=== PATIENT | female | born 1990 ===

== ENCOUNTER 2021-01-29 12:57 | Emergency (ER) | payer MEDICAID ==
[2021-01-29 14:41] VITALS: BP 146/81
[2021-01-29 15:10] LABS: Basophils # (Auto) 0.1 K/mm3 (0.0-0.1); Basophils % (Auto) 0.7 % (0.0-1.8); Eosinophils % (Auto) 0.5 % (0.0-4.3); Hemoglobin 13.7 gm/dl (10.1-14.3); Lymphocytes # (Auto) 1.3 K/mm3 (1.2-5.4); Mean Corpuscular HGB Conc 34 % (30-34); Mean Corpuscular Volume 86 fl (79-97); Monocytes # (Auto) 0.4 K/mm3 (0.0-0.8); Monocytes % (Auto) 4.8 % (0.0-7.3); Platelet Count 267 K/mm3 (140-440); Red Blood Count 4.77 M/mm3 (3.65-5.03); Red Cell Distribution Width 14.2 % (13.2-15.2)
[2021-01-29 15:29] LABS: Alanine Aminotransferase 8 units/L (7-56); Albumin 4.4 g/dL (3.9-5); BUN/Creatinine Ratio 13; Blood Urea Nitrogen 12 mg/dL (7-17); Calcium 8.8 mg/dL (8.4-10.2); Hemolysis Index 3
--- NOTE | 2021-01-29 16:59 | Emergency Department Report ---
ED General Adult HPI - General Chief complaint: Weakness Stated complaint: SOB/LIGHT HEADED Source: patient Mode of arrival: Ambulatory Limitations: No Limitations - History of Present Illness Initial comments: 30-year-old female states that on night she had pain to her legs bilaterally she took an oxycodone tablet for the pain. On Sunday morning morning she vomited 2-3 times. Since then she has been feeling weak fatigued. Today she has had no episode of vomiting but still complains of just generally not feeling well and feeling fatigued. She denies chest pain she denies shortness of breath she has no fever chills no nausea , she denies urinary frequency or urgency. She reports a past medical history of sickle cell trait only no other chronic medical conditions Associated Symptoms: malaise, weakness. denies: confusion, chest pain, cough, diaphoresis, fever/chills, headaches, shortness of breath Treatments Prior to Arrival: none - Related Data Previous Rx's Medication Instructions Recorded Last Taken Type Ibuprofen [Motrin 600 MG tab] 600 mg PO Q8H PRN #30 tablet 05/08/16 Unknown Rx Allergies Allergy/AdvReac Type Severity Reaction Status Date / Time No Known Allergies Allergy Verified 01/29/21 14:41 ED Review of Systems ROS: Stated complaint: SOB/LIGHT HEADED Other details as noted in HPI Comment: All other systems reviewed and negative Constitutional: no symptoms reported. denies: chills, fever, weakness ENT: denies: ear pain, throat pain, dental pain, hearing loss, epistaxis, congestion Respiratory: denies: cough Cardiovascular: denies: chest pain, palpitations, dyspnea on exertion, edema, syncope, paroxysmal nocturnal dyspnea Endocrine: no symptoms reported Gastrointestinal: nausea (2 episodes on Sunday associated with nausea nausea), vomiting. denies: abdominal pain Genitourinary: denies: dysuria Musculoskeletal: denies: back pain Skin: denies: rash, change in color Psychiatric: denies: anxiety, auditory hallucinations Hematological/Lymphatic: denies: easy bleeding ED Past Medical Hx - Past Medical History Hx Hypertension: No Hx Congestive Heart Failure: No Hx Diabetes: No Hx Deep Vein Thrombosis: No Hx Renal Disease: No Hx Sickle Cell Disease: No Hx Seizures: No Hx Asthma: No Hx COPD: No Hx HIV: No - Social History Smoking Status: Never Smoker - Medications Home Medications: Home Medications Medication Instructions Recorded Confirmed Last Taken Type Ibuprofen [Motrin 600 MG tab] 600 mg PO Q8H PRN #30 tablet 05/08/16 Unknown Rx ED Physical Exam - General Limitations: No Limitations General appearance: alert, in no apparent distress - Head Head exam: Present: atraumatic - Eye Eye exam: Present: normal appearance - ENT ENT exam: Present: normal exam, mucous membranes moist, TM's normal bilaterally - Neck Neck exam: Present: normal inspection - Respiratory Respiratory exam: Present: normal lung sounds bilaterally - Cardiovascular Cardiovascular Exam: Present: regular rate, normal heart sounds - GI/Abdominal GI/Abdominal exam: Present: soft. Absent: distended, tenderness - Extremities Exam Extremities exam: Present: normal inspection - Back Exam Back exam: Present: normal inspection - Neurological Exam Neurological exam: Present: alert, oriented X3 - Psychiatric Psychiatric exam: Present: normal affect - Skin Skin exam: Present: warm, dry, intact, normal color ED Course Vital Signs 01/29/21 14:41 Temperature 98.7 F Pulse Rate 78 Respiratory 18 Rate Blood Pressure 146/81 [Left] O2 Sat by Pulse 100 Oximetry - Reevaluation(s) Reevaluation #1: 01/29/21 17:03 Well-appearing in no acute distress labs results are back and with no acute abnormalities awaiting urinalysis results ED Medical Decision Making - Lab Data Result diagrams: 01/29/21 14:56 01/29/21 14:56 - EKG Data EKG shows normal: sinus rhythm Rate: normal (73) - Medical Decision Making 30-year-old female past medical history of sickle cell trait no sickle cell disease patient states that her bilateral legs were hurting on night she took an oxycodone. On Sunday morning she had 2-3 episodes of vomiting no nausea she has not been feeling well since just feeling fatigued but no additional vomiting feeling tired lab results reviewed with patient her CBC and chemistry with no acute findings urine negative for urinary tract infection I discussed all findings with the patient she is in no acute distress she plans to follow-up with her primary care doctor. Advise rest hydration and follow-up as needed - Differential Diagnosis Viral illness reaction to medication Critical Care Time: No Critical care attestation.: If time is entered above; I have spent that time in minutes in the direct care of this critically ill patient, excluding procedure time. ED Disposition Clinical Impression: Viral illness Drug reaction Qualifiers: Encounter type: initial encounter Qualified Code(s): T50.905A - Adverse effect of unspecified drugs, medicaments and biological substances, initial encounter Disposition: TO HOME OR SELFCARE Is pt being admited?: No Does the pt Need Aspirin: No Condition: Stable Instructions: Viral Illness, Adult Additional Instructions: You may have had a reaction to the oxycodone that you took on this is unclear. This could also possibly be a viral illness. I suggest for the next 24 to 48 hours you keep yourself well-hydrated have a bland diet rest call your primary care doctor and follow-up with him or her in 3 to 5 days return to the emergency room for any worsening symptoms Referrals: PRIMARY CARE, [Primary Care Provider] - 3-5 Days Time of Disposition: 17:23
[2021-01-29 17:13] LABS: Bacteria,Urine 1+ /HPF (Negative); Bilirubin,Urine NEG (Negative); Blood,Urine NEG (Negative); Color,Urine Yellow (Yellow); Mucus,Urine FEW /HPF; Protein,Urine <15 mg/dL mg/dL (Negative); Urobilinogen,Urine < 2.0 mg/dL (<2.0)
--- NOTE | 2021-01-31 21:35 | Electrocardiograph Report ---
[facility] Test Date: 2021-01-29 Test Time: 14:47:21 Pat Name: JAYLA KIRK Department: Room: Gender: F [employer] Supervisor: EUGENE : 1990 Requested By: KARINA PRABHAKAR Order Number: [id number] Reading MD: Kyler Eddy Measurements Intervals [place] Rate: 73 P: 80 TX: 153 QRS: 49 QRSD: 72 T: 37 QT: 355 QTc: 391 Interpretive Statements Sinus rhythm No previous ECG available for comparison Electronically Signed On 01-31-2021 21:35:25 EDT by Kyler Eddy
== END 2021-01-29 17:31 | disposition home or self-care (01) ==
LOC: ED 12:57
DX: R42 Dizziness and giddiness (principal); T40.2X5A Adverse effect of other opioids, initial encounter; B34.9 Viral infection, unspecified; Z79.1 Long term (current) use of non-steroidal anti-inflammatories (NSAID); Y92.89 Other specified places as the place of occurrence of the external cause
CPT/HCPCS: 36415; 80053; 81001; 84484; 84703; 85025; 93005

== ENCOUNTER 2022-04-15 17:28 | Emergency (ER) | payer MEDICAID ==
[2022-04-15 17:47] VITALS: BP 123/74
== END 2022-04-16 11:35 | disposition left against medical advice (07) ==
LOC: ED 17:28
DX: M54.9 Dorsalgia, unspecified (principal); Z53.21 Procedure and treatment not carried out due to patient leaving prior to being seen by health care provider